=== PATIENT | female | born 1970 | race Hispanic/Latino ===

== ENCOUNTER 2023-05-19 03:10 | Emergency (ER) | payer OTHER ==
[~2023-05-19] VITALS: Ht 160 cm; Wt 80.3 kg
[2023-05-19 03:13] VITALS: BP 130/77; PULSE 88; RESP 20
== END 2023-05-19 06:00 | disposition left against medical advice (07) ==
LOC: EDH 03:10
DX: M79.642 Pain in left hand (principal); Z53.21 Procedure and treatment not carried out due to patient leaving prior to being seen by health care provider
CPT/HCPCS: 99281